=== PATIENT | female | born 1980 | race Caucasian/White ===

== ENCOUNTER 2016-10-17 01:07 | Emergency (ER) | payer BC ==
[~2016-10-17] VITALS: Ht 154.9 cm; Wt 68.2 kg
[~2016-10-17 01:07] MED LIST: CIPRO 500MG TA500 MG PO; NORCO 325 MG-51 TAB PO
[2016-10-17 01:12] VITALS: TEMP 97.3
[2016-10-17 01:34] LABS: BASO # 0.1 (0.0-0.2); BASO % 0.6 % (0.0-2.0); EOS # 0.2 (0.0-0.7); EOS % 1.8 % (0-4.0); GRAN # 5.7 (1.4-6.5); GRAN % 48.2 % (42.2-75.2); HEMOGLOBIN 15.3 g/dl (12.5-16.0); LYMPH # 4.8 (1.2-3.4); LYMPH % 40.6 % (20.0-51.0); MEAN CELL VOLUME 93 fl (80.0-100.0); MEAN CORPUSCULAR HEMOGLOBIN 32 pg (27.0-31.0); MEAN CORPUSCULAR HGB CONC 35 g/dl (33.0-37.0); MEAN PLATELET VOLUME 9.4 fl (7.4-10.4); MONO % 8.4 % (1.7-9.3); PLATELET COUNT 304 K/mm3 (130-400); RED BLOOD COUNT 4.74 M/mm3 (4.10-5.30); REDCELL DISTRIBUTION WIDTH-CV 12.7 % (11.5-14.5); WHITE BLOOD COUNT 11.7 K/mm3 (4.8-10.8)
[2016-10-17 01:37] LABS: PROTHROMBIN TIME 11.2 SECONDS (9.7-12.8)
[2016-10-17 01:40] LABS: PARTIAL THROMBOPLASTIN TIME 32.2 SECONDS (26.0-37.0)
[2016-10-17 01:42] LABS: ADJUSTED CALCIUM 9.1 mg/dL (8.4-10.2); ALANINE AMINOTRANSFERASE 36 U/L (9-52); ALBUMIN 4.2 gm/dL (3.5-5.0); ALKALINE PHOSPHATASE 69 U/L (50-136); ANION GAP 10 mmol/L (7-16); BILIRUBIN,TOTAL 0.5 mg/dL (0.0-1.0); BLOOD UREA NITROGEN 13 mg/dL (7-17); CALCIUM 9.3 mg/dL (8.4-10.2); CARBON DIOXIDE 24 mmol/L (22-30); CHLORIDE 105 mmol/L (98-107); CREATININE, serum 0.66 mg/dL (0.52-1.25); GLUCOSE 92 mg/dL (74-106); POTASSIUM 3.4 mmol/L (3.4-5.0); SODIUM 139 mmol/L (137-145); TOTAL PROTEIN 7.4 gm/dL (6.4-8.2)
[2016-10-17 01:50] LABS: TROPONIN-I < 0.012 ng/mL (0.000-0.034)
[2016-10-17 04:05] VITALS: BP 134/61; PULSE 81
== END 2016-10-17 04:05 | disposition home or self-care (01) ==
LOC: COL.ER 01:07
PROVIDERS: Emergency Medicine
DX: R07.9 Chest pain, unspecified (principal); F17.210 Nicotine dependence, cigarettes, uncomplicated

== ENCOUNTER 2016-10-21 15:33 | Day surgery (SDC) | payer BC ==
[~2016-10-21] VITALS: Ht 154.9 cm; Wt 68.4 kg
[2016-10-21 16:43] VITALS: BP 110/58; PULSE 67; TEMP 98.2
[2016-10-21 18:25] VITALS: BP 123/60; PULSE 64
[2016-10-21 18:33] VITALS: TEMP 97.2
[2016-10-21 18:40] VITALS: BP 110/63; PULSE 56
== END 2016-10-21 20:01 | disposition home or self-care (01) ==
LOC: SDCO 15:33 → SURG 18:41 → SDCO 20:01
DX: N20.1 Calculus of ureter (principal); Z87.442 Personal history of urinary calculi; E78.5 Hyperlipidemia, unspecified; Z87.440 Personal history of urinary (tract) infections; F17.210 Nicotine dependence, cigarettes, uncomplicated
CPT/HCPCS: OP; C1769; C1894; C2617; J0690; J1885; J2405; J2704; J3010; J7120; Q9967

== ENCOUNTER → 2016-12-13 | Outpatient (CLI) | payer BC ==
[~2016-12-13] MED LIST changes: +PROTONIX 40MG T40 MG PO
== END ==
LOC: COL.RAD 09:06
DX: R10.11 Right upper quadrant pain (principal); M54.89 Other dorsalgia
CPT/HCPCS: A9537; J2805

== ENCOUNTER 2017-01-31 08:47 | Day surgery (SDC) | payer BC ==
[~2017-01-31] VITALS: Ht 154.9 cm; Wt 70.2 kg
[~2017-01-31 08:47] MED LIST changes: -PROTONIX 40MG T40 MG PO
[2017-01-31 09:18] VITALS: BP 116/71; PULSE 70; TEMP 98.4
[2017-01-31] MEDS ORDERED: PROTONIX 40MG T40 MG PO (09:42)
[2017-01-31 11:28] VITALS: BP 101/61; PULSE 75; TEMP 97.9
[2017-01-31 11:45] VITALS: BP 102/60; PULSE 68
== END 2017-01-31 12:00 | disposition home or self-care (01) ==
LOC: SDCO 08:47
DX: K21.0 Gastro-esophageal reflux disease with esophagitis (principal); R07.9 Chest pain, unspecified; R19.4 Change in bowel habit; R19.7 Diarrhea, unspecified; Z87.442 Personal history of urinary calculi; Z87.891 Personal history of nicotine dependence
CPT/HCPCS: J2250; J2405; J3010; J7030

== ENCOUNTER 2017-07-20 10:22 | Emergency (ER) | payer BC ==
[~2017-07-20] VITALS: Ht 154.9 cm; Wt 70.9 kg
[~2017-07-20 10:22] MED LIST changes: +PROTONIX 40MG T40 MG PO
[2017-07-20 10:24] VITALS: TEMP 98
[2017-07-20 11:07] LABS: COLLECTION METHOD CLEAN CATCH
[2017-07-20 11:10] LABS: BASO % 0.3 % (0.0-2.0); EOS # 0.1 (0.0-0.7); EOS % 1.4 % (0-4.0); GRAN # 6.2 (1.4-6.5); GRAN % 67.9 % (42.2-75.2); HEMATOCRIT 47.5 % (37.0-47.0); HEMOGLOBIN 16.5 g/dl (12.5-16.0); LYMPH # 2.2 (1.2-3.4); LYMPH % 24.6 % (20.0-51.0); MEAN CELL VOLUME 92 fl (80.0-100.0); MEAN CORPUSCULAR HEMOGLOBIN 32 pg (27.0-31.0); MEAN CORPUSCULAR HGB CONC 35 g/dl (33.0-37.0); MEAN PLATELET VOLUME 9.3 fl (7.4-10.4); MONO # 0.5 (0.1-0.6); MONO % 5.6 % (1.7-9.3); PLATELET COUNT 296 K/mm3 (130-400); RED BLOOD COUNT 5.19 M/mm3 (4.10-5.30); WHITE BLOOD COUNT 9.1 K/mm3 (4.8-10.8)
[2017-07-20 11:17] LABS: MUCOUS Present /lpf; PH 5 (5-8); URINE APPEARANCE Cloudy; URINE BACTERIA Rare /hpf; URINE BILIRUBIN Negative (NEGATIVE); URINE BLOOD 2+ (NEGATIVE); URINE COLOR Yellow; URINE GLUCOSE Negative (NEGATIVE); URINE KETONE Negative (NEGATIVE); URINE LEUKOCYTE ESTERASE 3+ (NEGATIVE); URINE PROTEIN(semi-quant) 1+ (NEGATIVE); URINE RBC 20-50 /hpf; URINE UROBILINOGEN Negative (NEGATIVE)
[2017-07-20 11:23] LABS: URINE WBC >50 /hpf
[2017-07-20 11:27] LABS: ADJUSTED CALCIUM 8.9 mg/dL (8.4-10.2); ALANINE AMINOTRANSFERASE 40 U/L (9-52); ALBUMIN 4.2 gm/dL (3.5-5.0); ALKALINE PHOSPHATASE 87 U/L (50-136); ANION GAP 13 mmol/L (7-16); BILIRUBIN,TOTAL 0.9 mg/dL (0.0-1.0); BLOOD UREA NITROGEN 11 mg/dL (7-17); CALCIUM 9.1 mg/dL (8.4-10.2); CARBON DIOXIDE 18 mmol/L (22-30); CHLORIDE 109 mmol/L (98-107); CREATININE, serum 0.76 mg/dL (0.52-1.25); GLUCOSE 110 mg/dL (74-106); POTASSIUM 3.8 mmol/L (3.4-5.0); SODIUM 140 mmol/L (137-145); TOTAL PROTEIN 7.6 gm/dL (6.4-8.2)
[2017-07-20 11:28] LABS: C-REACTIVE PROTEIN < 0.5 mg/dL (0.0-0.9)
[2017-07-20] MEDS ORDERED: PERCOCET 325 MG1 TA2 PO (14:00)
[2017-07-20] MEDS ORDERED: CEFTIN500 MG PO (14:05)
[2017-07-20 14:19] VITALS: BP 120/65; PULSE 65
== END 2017-07-20 14:20 | disposition home or self-care (01) ==
LOC: COL.ER 10:22
PROVIDERS: Nurse Practitioner
DX: N20.1 Calculus of ureter (principal); Z87.442 Personal history of urinary calculi; K21.9 Gastro-esophageal reflux disease without esophagitis; F17.290 Nicotine dependence, other tobacco product, uncomplicated; Z98.890 Other specified postprocedural states
CPT/HCPCS: J1170; J1885; J2270; J2405; J7030; Q9967

== ENCOUNTER 2018-01-30 22:09 | Emergency (ER) | payer BC ==
[~2018-01-30] VITALS: Ht 154.9 cm; Wt 71.8 kg
[~2018-01-30 22:09] MED LIST changes: +CEFTIN500 MG PO; +PERCOCET 325 MG1 TA2 PO
[2018-01-30 22:21] VITALS: TEMP 97.2
[2018-01-30 22:58] LABS: COLLECTION METHOD CLEAN CATCH
[2018-01-30 23:02] LABS: BASO # 0.1 (0.0-0.2); BASO % 0.4 % (0.0-2.0); EOS % 0.2 % (0-4.0); GRAN # 11.4 (1.4-6.5); GRAN % 79.8 % (42.2-75.2); HEMATOCRIT 45.8 % (37.0-47.0); HEMOGLOBIN 15.9 g/dl (12.5-16.0); LYMPH # 1.9 (1.2-3.4); LYMPH % 13.2 % (20.0-51.0); MEAN CELL VOLUME 90 fl (80.0-100.0); MEAN CORPUSCULAR HEMOGLOBIN 31 pg (27.0-31.0); MEAN CORPUSCULAR HGB CONC 35 g/dl (33.0-37.0); MEAN PLATELET VOLUME 9.1 fl (7.4-10.4); MONO # 0.9 (0.1-0.6); PLATELET COUNT 289 K/mm3 (130-400); RED BLOOD COUNT 5.12 M/mm3 (4.10-5.30)
[2018-01-30 23:08] LABS: PH 6 (5-8); URINE APPEARANCE Cloudy; URINE BACTERIA None Seen /hpf; URINE BILIRUBIN Negative (NEGATIVE); URINE BLOOD 3+ (NEGATIVE); URINE COLOR Yellow; URINE GLUCOSE Negative (NEGATIVE); URINE KETONE Trace (NEGATIVE); URINE LEUKOCYTE ESTERASE 3+ (NEGATIVE); URINE NITRATE Negative (NEGATIVE); URINE PROTEIN(semi-quant) 2+ (NEGATIVE); URINE RBC >50 /hpf; URINE UROBILINOGEN Negative (NEGATIVE)
[2018-01-30 23:12] LABS: CREATININE, serum 0.79 mg/dL (0.52-1.25); POTASSIUM 3.8 mmol/L (3.4-5.0)
[2018-01-31 01:50] VITALS: BP 112/62; PULSE 53
== END 2018-01-31 01:50 | disposition home or self-care (01) ==
LOC: COL.ER 22:09
PROVIDERS: Emergency Medicine
DX: N20.1 Calculus of ureter (principal)
CPT/HCPCS: J0696; J1170; J1885; J2405; J7030

== ENCOUNTER → 2020-09-18 | Outpatient (CLI) | payer BC | LOC: MC.RAD 08:11 | DX: Z12.31 Encounter for screening mammogram for malignant neoplasm of breast (principal) ==

== ENCOUNTER 2022-03-05 15:24 | Inpatient (IN) | payer BC ==
[2022-03-05] VITALS (246 sets, daily range): BP systolic 98–115; BP diastolic 59–79; PULSE 75–198; TEMP 98.7; O2SAT 90–98
[~2022-03-05] VITALS: Ht 154.9 cm; Wt 70.5 kg
[2022-03-05 16:04] LABS: COLLECTION METHOD CLEAN CATCH
[2022-03-05] MEDS ORDERED: BACTRIM DS 8001 TAB PO (16:06)
[2022-03-05 16:10] LABS: HEMATOCRIT 44.1 % (37.0-47.0); HEMOGLOBIN 15.8 g/dl (12.5-16.0); MEAN CELL VOLUME 91 fl (80.0-100.0); MEAN CORPUSCULAR HEMOGLOBIN 33 pg (27-31); MEAN CORPUSCULAR HGB CONC 36 g/dl (33.0-37.0); MEAN PLATELET VOLUME 9.7 fl (7.4-10.4); PLATELET COUNT 164 K/mm3 (130-400); RED BLOOD COUNT 4.84 M/mm3 (4.10-5.30); REDCELL DISTRIBUTION WIDTH-CV 12.2 % (11.5-14.5)
[2022-03-05 16:12] LABS: PH 5 (5-8); URINE APPEARANCE Hazy (CLEAR/HAZY); URINE BACTERIA Rare /hpf (NONE SEEN); URINE BILIRUBIN Negative (NEGATIVE); URINE BLOOD Negative (NEGATIVE); URINE COLOR Yellow (YELLOW); URINE GLUCOSE Negative (NEGATIVE); URINE KETONE Negative (NEGATIVE); URINE LEUKOCYTE ESTERASE Negative (NEGATIVE); URINE NITRATE Negative (NEGATIVE); URINE PROTEIN(semi-quant) 1+ (NEGATIVE); URINE RBC 0-2 /hpf (0-2); URINE UROBILINOGEN Negative (NEGATIVE)
[2022-03-05 16:32] LABS: ALBUMIN 3.3 gm/dL (3.5-5.0); BILIRUBIN,TOTAL 0.7 mg/dL (0.2-1.2); CALCIUM 9.1 mg/dL (8.4-10.2); CREATININE, serum 2.14 mg/dL (0.57-1.11); POTASSIUM 3.7 mmol/L (3.5-4.5)
[2022-03-05 17:59] LABS: BAND 32 % (0-10); EOSINOPHIL 1 % (0-4); LYMPHOCYTE 9 % (20.0-51.0); METAMYELOCYTE 5 % (0-0); NEUTROPHILS 52 % (42.0-75.2)
[2022-03-05 18:01] LABS: PLATELET ESTIMATE NORMAL (NORMAL)
--- NOTE | 2022-03-05 19:43 | NUR ---
1930 pt received from or at this time. pt in stable condition w/ no complaints. vss. bedside report from or nurse.
[2022-03-06] VITALS (402 sets, daily range): BP systolic 95–121; BP diastolic 48–75; PULSE 55–82; TEMP 97.9–98.8; O2SAT 92–97
[2022-03-06] MEDS ORDERED: COMPLETE MULTI1 TAB PO (00:24)
[2022-03-06] MEDS ORDERED: PROBIOTIC BLEN1 EACH PO (00:24)
[2022-03-06 06:33] LABS: HEMATOCRIT 38.5 % (37.0-47.0); MEAN CELL VOLUME 91 fl (80.0-100.0); MEAN CORPUSCULAR HEMOGLOBIN 32 pg (27-31); MEAN CORPUSCULAR HGB CONC 35 g/dl (33.0-37.0); MEAN PLATELET VOLUME 9.8 fl (7.4-10.4); PLATELET COUNT 126 K/mm3 (130-400); RED BLOOD COUNT 4.21 M/mm3 (4.10-5.30); REDCELL DISTRIBUTION WIDTH-CV 12.5 % (11.5-14.5)
[2022-03-06 06:35] LABS: HEMOGLOBIN 13.4 g/dl (12.5-16.0)
[2022-03-06 06:53] LABS: CALCIUM 8.4 mg/dL (8.4-10.2); CREATININE, serum 1.48 mg/dL (0.57-1.11); POTASSIUM 4.6 mmol/L (3.5-4.5)
[2022-03-06 08:32] LABS: BAND 15 % (0-10); LYMPHOCYTE 9 % (20.0-51.0); NEUTROPHILS 75 % (42.0-75.2)
--- NOTE | 2022-03-06 09:31 | NUR ---
machine made shoe unit worker met with patient to complete intake. Patient scheduled to move up to the medical floor this morning. Patient is independent with her ADL's and does not utilize any DME or oxygen while at home. PCP is Dr. Collier and she utilizes [facility] in for medication needs. Patient does not have a DPOA-HC established. Patient has one child who is not an adult and is not . Her established legal next of kin is her mother Elba ([phone]).
--- NOTE | 2022-03-06 09:39 | NUR ---
Initial visit; Patient thanked Medical Receptionist Medical Assistant for stopping though stated she is grouchy because of not sleeping. Medical Receptionist Medical Assistant offered God's blessings and prays that she either be sent upstairs or home.
--- NOTE | 2022-03-06 21:36 | NUR ---
Pt resting quietly in bed, on her personal cellphone. Pt has no complaints of pain and is A&Ox4. Assessment and medication adminstration completed without difficulty. Pt eating and drinking without difficulty. All other needs met at this time, call light within reach.
--- NOTE | 2022-03-07 00:05 | NUR ---
Lab called with positive blood culture results. Hospitalist informed, stated that current antibiotic treatment will treat infection.
[2022-03-07 03:07] VITALS: BP 120/68; PULSE 53; TEMP 98.3
[2022-03-07 06:38] LABS: HEMATOCRIT 37.8 % (37.0-47.0); HEMOGLOBIN 13.4 g/dl (12.5-16.0); MEAN CELL VOLUME 91 fl (80.0-100.0); MEAN CORPUSCULAR HEMOGLOBIN 32 pg (27-31); MEAN CORPUSCULAR HGB CONC 35 g/dl (33.0-37.0); MEAN PLATELET VOLUME 11.2 fl (7.4-10.4); PLATELET COUNT 137 K/mm3 (130-400); RED BLOOD COUNT 4.15 M/mm3 (4.10-5.30); REDCELL DISTRIBUTION WIDTH-CV 12.8 % (11.5-14.5)
[2022-03-07 07:04] LABS: CALCIUM 8.8 mg/dL (8.4-10.2); CREATININE, serum 1.06 mg/dL (0.57-1.11); POTASSIUM 4.3 mmol/L (3.5-4.5)
[2022-03-07 07:15] VITALS: BP 137/69; PULSE 47; TEMP 99
--- NOTE | 2022-03-07 08:31 | NUR ---
PATIENT ALERT AND ORIENTED X3. NO NEW CONCERNS. PATIENT WANTS TO GO HOME. IV FLUIDS RUNNING AT 75/HR.
[2022-03-07 08:57] LABS: BAND 17 % (0-10); LYMPHOCYTE 14 % (20.0-51.0); NEUTROPHILS 67 % (42.0-75.2); PLATELET ESTIMATE NORMAL (NORMAL)
[2022-03-07 12:07] VITALS: BP 119/65; PULSE 69; TEMP 97.9
[2022-03-07 15:54] VITALS: BP 126/62; PULSE 54; TEMP 98.2
--- NOTE | 2022-03-07 19:46 | NUR ---
ASSESSMENT COMPLETE. PT. SITTING UP IN BED VISITING WITH FAMILY. A&O. COMPLAINING OF MILD NAUSEA AND PAIN IN ABDOMEN AFTER EATING DINNER. NS INFUSING AT 75 ML/HR TO RIGHT AC. CALL LIGHT IN REACH. NO FURHTER NEEDS AT THIS TIME.
[2022-03-07 20:02] VITALS: BP 128/58; PULSE 58; TEMP 98.3
[2022-03-07 23:57] VITALS: BP 114/56; PULSE 65; TEMP 98.4
[2022-03-08 03:37] VITALS: BP 116/60; PULSE 59; TEMP 98.5
[2022-03-08 06:43] LABS: BASO # 0.1 K/mm3 (0.0-0.2); BASO % 0.4 % (0.0-2.0); EOS % 0.1 % (0.0-4.0); GRAN # 13.7 K/mm3 (1.4-6.5); GRAN % 80.6 % (42.2-75.2); HEMATOCRIT 39.1 % (37.0-47.0); HEMOGLOBIN 13.6 g/dl (12.5-16.0); LYMPH # 2.1 K/mm3 (1.2-3.4); LYMPH % 12.5 % (20.0-51.0); MEAN CELL VOLUME 92 fl (80.0-100.0); MEAN CORPUSCULAR HEMOGLOBIN 32 pg (27-31); MEAN CORPUSCULAR HGB CONC 35 g/dl (33.0-37.0); MEAN PLATELET VOLUME 11.4 fl (7.4-10.4); MONO % 5.8 % (1.7-9.3); PLATELET COUNT 157 K/mm3 (130-400); RED BLOOD COUNT 4.26 M/mm3 (4.10-5.30)
[2022-03-08 06:58] LABS: CALCIUM 8.6 mg/dL (8.4-10.2); CREATININE, serum 0.96 mg/dL (0.57-1.11)
[2022-03-08 07:05] VITALS: BP 110/61; PULSE 64; TEMP 98.8
--- NOTE | 2022-03-08 08:30 | NUR ---
PATIENT NOW OUT OF SHOWER AND BLOW-DRYING HER HAIR. A&O. VSS. NO COMPLAINTS THIS AM. HEAD TO TOE ASSESSMENT COMPLETE. AM MEDS GIVEN. PATIENT REPORTS SHE IS VOIDING FREQUENTLY. NO C/O N/V. BREAKFAST TRAY ORDERED. RIGHT AC IV TO INT. SCD'S CURRENTLY OFF. PATIENT MOVING AROUND ROOM INDEPENDENTLY WHILE GETTING READY FOR THE DAY AND TOLERATING ACTIVITY. NO OTHER NEEDS AT THIS TIME. CALL LIGHT AT BEDSIDE.
[2022-03-08 11:42] VITALS: BP 114/61; PULSE 74; TEMP 99.7
--- NOTE | 2022-03-08 13:20 | NUR ---
PATIENT CALLED OUT REQUESTING SOMETHING FOR BLADDER SPASMS. PATIENT VOIDING FREQUENTLY AND REPORTS SOME BURNING. NURSING EDUCATED ABOUT STENT. NOTED TEMP OF 99.7 DURING ROUTINE VITALS. GAVE PRN TYLENOL, TWO TABS. PATIENT GETTING SCHEDULE IV ROCEPHIN. NOTIFIED PROVIDER, AWAITING RETURN CALL. PATIENT RESTING IN BED WITH CALL LIGHT IN REACH.
--- NOTE | 2022-03-08 14:50 | NUR ---
PATIENT ULOLOGIST OUT OF TOWN, NOTIFIED FOOD SAMPLER PROVIDER. OBTAINED ONE TIME DOSE ORDER FOR AZO FOR C/O SPASM/BURNING. PATIENT HAS BEEN RESTING IN BED SINCE TYLENOL AND WENT RIGHT BACK TO SLEEP AFTER GETTING AZO. LIGHTS TURNED DOWN. CALL LIGHT IN REACH.
[2022-03-08 15:51] VITALS: BP 108/54; PULSE 65; TEMP 98.4
[2022-03-08 20:54] VITALS: BP 112/63; PULSE 65; TEMP 98.4
--- NOTE | 2022-03-08 22:15 | NUR ---
ASSESSMENT COMPLETE. PT. SITTING ON THE SIDE OF THE BED. A&O. NO COMPLAINTS OF PAIN OR SPASMS. CALL LIGHT IN REACH. NO FURTHER NEEDS.
[2022-03-09 00:53] VITALS: BP 122/57; PULSE 59; TEMP 97.7
[2022-03-09 04:19] VITALS: BP 117/60; PULSE 56; TEMP 98.2
[2022-03-09 06:20] LABS: HEMATOCRIT 37.8 % (37.0-47.0); HEMOGLOBIN 13.1 g/dl (12.5-16.0); MEAN CELL VOLUME 92 fl (80.0-100.0); MEAN CORPUSCULAR HEMOGLOBIN 32 pg (27-31); MEAN CORPUSCULAR HGB CONC 35 g/dl (33.0-37.0); MEAN PLATELET VOLUME 10.8 fl (7.4-10.4); PLATELET COUNT 183 K/mm3 (130-400); RED BLOOD COUNT 4.12 M/mm3 (4.10-5.30); REDCELL DISTRIBUTION WIDTH-CV 12.7 % (11.5-14.5)
[2022-03-09 06:37] LABS: CALCIUM 8.5 mg/dL (8.4-10.2); CREATININE, serum 0.84 mg/dL (0.57-1.11); POTASSIUM 3.6 mmol/L (3.5-4.5)
[2022-03-09 07:04] LABS: BAND 3 % (0-10); EOSINOPHIL 1 % (0-4); LYMPHOCYTE 23 % (20.0-51.0); NEUTROPHILS 68 % (42.0-75.2); PLATELET ESTIMATE NORMAL (NORMAL)
[2022-03-09 08:04] VITALS: BP 123/61; PULSE 66; TEMP 98.4
[2022-03-09 12:22] VITALS: BP 108/67; PULSE 78; TEMP 98.6
[2022-03-09 16:16] VITALS: BP 128/73; PULSE 79; TEMP 98.5
--- NOTE | 2022-03-09 19:30 | NUR ---
Pt. sitting up at bedside. Pt. is A&OX3, assessment complete. INT to rt. ac patent. Pt. denies pain or other needs. Call light within reach.
[2022-03-09 19:59] VITALS: BP 129/64; PULSE 68; TEMP 98.3
[2022-03-10 04:47] VITALS: BP 122/60; PULSE 62; TEMP 97.8
[2022-03-10 07:05] LABS: CALCIUM 8.7 mg/dL (8.4-10.2); CREATININE, serum 0.83 mg/dL (0.57-1.11); POTASSIUM 3.6 mmol/L (3.5-4.5)
[2022-03-10 07:29] VITALS: BP 108/51; PULSE 69; TEMP 98.4
[2022-03-10 07:41] LABS: HEMATOCRIT 38.8 % (37.0-47.0); HEMOGLOBIN 13.6 g/dl (12.5-16.0); MEAN CELL VOLUME 92 fl (80.0-100.0); MEAN CORPUSCULAR HEMOGLOBIN 32 pg (27-31); MEAN CORPUSCULAR HGB CONC 35 g/dl (33.0-37.0); PLATELET COUNT 230 K/mm3 (130-400); RED BLOOD COUNT 4.24 M/mm3 (4.10-5.30); REDCELL DISTRIBUTION WIDTH-CV 12.6 % (11.5-14.5)
[2022-03-10 09:11] LABS: EOSINOPHIL 2 % (0-4); LYMPHOCYTE 18 % (20.0-51.0); NEUTROPHILS 71 % (42.0-75.2)
[2022-03-10 09:12] LABS: PLATELET ESTIMATE NORMAL (NORMAL)
[2022-03-10] MEDS ORDERED: OMNICEF 300MG300 MG PO (11:23)
== END 2022-03-10 11:40 | disposition home or self-care (01) | DRG 854 ==
LOC: COL.ER 15:24 → SURG 17:58 → ICU 17:58 → SURG 03-06 09:48
PROVIDERS: Emergency Medicine; Family Medicine; Physician Assistant; Student in an Organized Health Care Education/Training Program; Urology; ADMIT Student in an Organized Health Care Education/Training Program
PROC: 0T778DZ Dilation of Left Ureter with Intraluminal Device, Via Natural or Artificial Opening Endoscopic (ICD-10-PCS; principal; 2022-03-05 18:00)
PROC: BT1F1ZZ Fluoroscopy of Left Kidney, Ureter and Bladder using Low Osmolar Contrast (ICD-10-PCS; 2022-03-05 18:00)
DX: A41.59 Other Gram-negative sepsis (principal); N17.9 Acute kidney failure, unspecified; N20.2 Calculus of kidney with calculus of ureter; N39.0 Urinary tract infection, site not specified; F17.200 Nicotine dependence, unspecified, uncomplicated; Z87.442 Personal history of urinary calculi
CPT/HCPCS: 99223-AI; 99232-AI; 99239; A9284; C1769; C2617; J0330; J0690; J0696; J1100; J1885; J2405; J2704; J3010; J7030; Q9967